=== PATIENT | male | born 1960 | race Caucasian/White ===

== ENCOUNTER 2017-01-31 21:29 | Inpatient (IN) | payer MEDICARE, OTHER ==
[2017-01-31] VITALS (8 sets, daily range): BP systolic 47–74; BP diastolic 25–38; TEMP 101.9; O2SAT 0–98
[~2017-01-31 21:29] MED LIST: ACET325T11 PO; ATOR20TA PO; BENZ1TAB PO; CIME200 PO; D-10TAB3 PO; DEPA500T3 PO; FURO1TAB93 PO; LORA-392 PO; POTASSIUM PO; RISP1TAB54 PO; SERO200T PO
[2017-01-31] MEDS ORDERED: PHENYLEPHRINE HCL 10 MG/ML VIAL ONE ×2 (21:58→21:59)
[2017-01-31] MEDS ORDERED: SODIUM CHLOR 0.9% 1000 ML INJ 1,000 ML IV ONE ×2 (22:12)
[2017-01-31] MEDS ORDERED: SODIUM CHLOR 0.9% 1000 ML INJ 700 ML IV ONE (22:12)
[2017-01-31] MEDS ORDERED: VASOPRESSIN INJ 40 UNITS in DEXTROSE 5% IN WATER 100ML INJ 98 ML IV SCH ×2 (22:12)
[2017-01-31] MEDS ORDERED: VANCOMYCIN INJ 2,000 MG in SODIUM CHLORID 0.9% 500 ML INJ 500 ML IV STA (22:12)
[2017-01-31] MEDS ORDERED: CEFEPIME INJ 2,000 MG in SODIUM CHLORIDE 0.9% INJ 100 ML IV STA (22:12)
[2017-01-31] MEDS ORDERED: VASOPRESSIN 40 U/100 ML D5W Titrate, Post Cardiac Surgery IV SCH ×2 (22:15)
--- NOTE | 2017-01-31 22:24 | PD ---
HPI Chief Complaint: Code Blue Time Seen by Provider: 22:12 Travel History International Travel<30 days: No (unable to determine) Contact w/Intl Traveler<30days: No History of Present Illness HPI Patient's 56 years old. He arrives from [place] where he was found unresponsive and asystolic. Duration of asystole unknown to the nursing staff. EMS initiated a sales protocol upon arrival and administered several rounds of epinephrine 2 rounds of bicarbonate and 2 mg of Narcan. The patient remained asystolic or in PEA throughout the course except for one episode of ventricular fibrillation. EMS reports performing approximately 30 minutes of chest compressions with no pulse. Endotracheal tube 8-0 placed successfully with breath sounds present bilaterally and a PCO2 of approximately 38. Upon arrival to the ER endotracheal tube placement was confirmed an ACLS protocol was continued. Within about 5 minutes or so palpable pulses were obtained. A right femoral vein central venous access was placed. The patient received 2 rounds of epi here as well as an additional round of bicarbonate and 2 rounds of calcium chloride. A Levophed drip was initiated as well as a Juan Diego-Synephrine drip. In the interim the charge nurse contacted the patient's brother who is the legal surrogate who confirmed that the patient is to be a DO NOT RESUSCITATE. The verbal DNR status was witnessed by DELFINO Beard. As such vasopressors will be maintained. In the event that pulses are loss the patient will not undergo chest compressions. His pupils were fixed and dilated upon ER arrival and remained so. PFSH Past Medical History Anemia: Yes Anxiety: Yes Depression: Yes Cancer: No Cardiovascular Problems: Yes High Cholesterol: Yes COPD: Yes Diabetes: No Diminished Hearing: No Endocrine: No Gastrointestinal Disorders: Yes GERD: Yes Genitourinary: Yes (KIDNEY DISEASE, CHRONIC UTIS) Hypertension: Yes Immune Disorder: No Musculoskeletal: No Neurologic: No Psychiatric: Yes Reproductive: Yes (BPH) Respiratory: Yes Schizophrenia: Yes Triglycerides - High: Yes Social History Alcohol Use: No Tobacco Use: Yes (1/2 PPD) Allergies-Medications (Allergen,Severity, Reaction): Coded Allergies: No Known Allergies (Unverified , 02/01/17) Reported Meds & Prescriptions Reported Meds & Active Scripts Active Reported C-500 (Ascorbic Acid) 500 Mg Tab 500 Mg PO BID Mapap (Acetaminophen) 325 Mg Tab 650 Mg PO Q6HR PRN Tagamet Hb (Cimetidine) 200 Mg Tab 200 Mg PO BID Seroquel (Quetiapine Fumarate) 200 Mg Tab 200 Mg PO HS Seroquel (Quetiapine Fumarate) 100 Mg Tab 100 Mg PO DAILY Risperidone 0.5 Mg Tab 0.5 Mg PO HS Risperdal (Risperidone) 0.25 Mg Tab 0.25 Mg PO DAILY K-Tab (Potassium Chloride) 10 Meq Tab 10 Meq PO BID Thera-M (Multiple Vitamins W/ Minerals) 1 Tab 1 Tab PO DAILY Levaquin (Levofloxacin) 500 Mg Tab 500 Mg PO DAILY Lasix (Furosemide) 40 Mg Tab 40 Mg PO BID Depakote Sprinkles (Divalproex Sodium) 125 mg Cap 250 Mg PO BID Vitamin D3 (Cholecalciferol) 2,000 Unit Tab 2,000 Units PO DAILY Baclofen 10 Mg Tab 10 Mg PO BID Atorvastatin (Atorvastatin Calcium) 20 Mg Tab 20 Mg PO HS Ativan (Lorazepam) 0.5 Mg Tab 0.5 Mg PO Q6H PRN Trihexyphenidyl (Trihexyphenidyl HCl) 5 Mg Tab 5 Mg PO TID Review of Systems ROS Limitations: Intubated Physical Exam Narrative GENERAL: 56-year-old male unresponsive GCS 3T SKIN: Warm. Delayed capillary refill in the periphery. HEAD: Atraumatic. Normocephalic. EYES: Teeple sticks and dilated. ENT: No nasal bleeding or discharge. Mucous membranes pink and moist. Patient intubated. NECK: Trachea midline. No JVD. Patient intubated. CARDIOVASCULAR: Initially pulseless. Return spontaneous circulation occurred after bicarbonate epinephrine and calcium. RESPIRATORY: Intubated. Breath sounds present bilaterally. GASTROINTESTINAL: Abdomen soft, non-tender, nondistended. Hepatic and splenic margins not palpable. MUSCULOSKELETAL: Deformity at the left ankle and foot appears chronic in nature. Bilateral edema present in the knees distally. NEUROLOGICAL: GCS3T. Pupils fixed dilated. PSYCHIATRIC: Unable to assess. Data Data Last Documented VS Vital Signs Date Time Temp Pulse Resp B/P Pulse Ox O2 Delivery O2 Flow Rate FiO2 02/01/17 01:08 108 16 66/45 94 Ventilator 100 01/31/17 21:48 101.9 01/31/17 21:29 15.00 Orders Phenylephrine Inj (Neosynephrine Inj) (01/31/17 21:58) Phenylephrine Inj (Neosynephrine Inj) (01/31/17 21:59) Vasopressin Inj (Pitressin Inj) (01/31/17 22:15) Electrocardiogram (01/31/17 22:12) Complete Blood Count With Diff (01/31/17 22:12) Comprehensive Metabolic Panel (01/31/17 22:12) Prothrombin Time / Inr (Pt) (01/31/17 22:12) Act Partial Throm Time (Ptt) (01/31/17 22:12) Lactic Acid Sepsis Protocol (01/31/17 22:12) Magnesium (Mg) (01/31/17 22:12) Phosphorus (Po4) (01/31/17 22:12) Lipase (01/31/17 22:12) Ckmb (Isoenzyme) Profile (01/31/17 22:12) Troponin I (01/31/17 22:12) Urinalysis - C+S If Indicated (01/31/17 22:12) Blood Culture (01/31/17 22:12) Chest, Single Ap (01/31/17 22:12) Blood Glucose (01/31/17 22:12) Ecg Monitoring (01/31/17 22:12) Iv Access Insert/Monitor (01/31/17 22:12) Oximetry (01/31/17 22:12) Oxygen Administration (01/31/17 22:12) Urinary Catheter Insert/Apply (01/31/17 22:12) Vancomycin Inj (Vancomycin Inj) (01/31/17 22:12) Cefepime Inj (Maxipime Inj) (01/31/17 22:12) Sodium Chlor 0.9% 1000 Ml Inj (Ns 1000 M (01/31/17 22:12) Sodium Chlor 0.9% 1000 Ml Inj (Ns 1000 M (01/31/17 22:12) Sodium Chlor 0.9% 1000 Ml Inj (Ns 1000 M (01/31/17 22:12) Norepinephrine-Dextrose Drip (Levophed-D (01/31/17 22:15) Dextrose 5% In [place]... W/Vasopressin Inj (01/31/17 22:12) Equip, Iv Pump Triple Use Of (01/31/17 22:24) Acetaminophen (Tylenol) (01/31/17 22:45) Blood Product Administration .UPON TRANSFUSION (01/31/17 22:42) Dextrose 5% In [place]... W/Sodium Bicarbon (01/31/17 22:45) Urine Culture (01/31/17 22:30) Hospice Consult (01/31/17 23:28) CKMB (01/31/17 21:30) CKMB% (01/31/17 21:30) Norepinephrine Inj (Levophed Inj) (02/01/17 00:21) Admit Order (Ed Use Only) (02/01/17 01:18) Phenylephrine Inj (Neosynephrine Inj) (02/01/17 02:30) Terbutaline Inj (Brethine Inj) (02/01/17 01:30) Labs Laboratory Tests Test 01/31/17 01/31/17 01/31/17 21:30 22:25 22:30 White Blood Count 20.3 TH/MM3 Red Blood Count 4.48 MIL/MM3 Hemoglobin 13.9 GM/DL Hematocrit 43.3 % Mean Corpuscular Volume 96.8 FL Mean Corpuscular Hemoglobin 31.1 PG Mean Corpuscular Hemoglobin 32.2 % Concent Red Cell Distribution Width 14.5 % Platelet Count 252 TH/MM3 Mean Platelet Volume 9.2 FL Neutrophils (%) (Auto) 71.6 % Lymphocytes (%) (Auto) 21.7 % Monocytes (%) (Auto) 4.9 % Eosinophils (%) (Auto) 1.1 % Basophils (%) (Auto) 0.7 % Neutrophils # (Auto) 14.5 TH/MM3 Lymphocytes # (Auto) 4.4 TH/MM3 Monocytes # (Auto) 1.0 TH/MM3 Eosinophils # (Auto) 0.2 TH/MM3 Basophils # (Auto) 0.1 TH/MM3 CBC Comment AUTO DIFF Differential Total Cells 100 Counted Neutrophils % (Manual) 60 % Band Neutrophils % 8 % Lymphocytes % 24 % Monocytes % 1 % Eosinophils % 1 % Neutrophils # (Manual) 15.0 TH/MM3 Metamyelocytes 6 % Nucleated Red Blood Cells 8 /100 WBC Differential Comment FINAL DIFF MANUAL Platelet Estimate NORMAL Platelet Morphology Comment NORMAL Red Cell Morphology Comment NORMAL Prothrombin Time 13.9 SEC Prothromb Time International 1.2 RATIO Ratio Activated Partial 25.4 SEC Thromboplast Time Sodium Level 143 MEQ/L Potassium Level 4.1 MEQ/L Chloride Level 97 MEQ/L Carbon Dioxide Level 18.0 MEQ/L Anion Gap 28 MEQ/L Blood Urea Nitrogen 31 MG/DL Creatinine 3.90 MG/DL Estimat Glomerular Filtration 16 ML/MIN Rate Random Glucose 183 MG/DL Calcium Level 9.2 MG/DL Phosphorus Level 9.8 MG/DL Magnesium Level 3.1 MG/DL Total Bilirubin 0.7 MG/DL Aspartate Amino Transf 1876 U/L (AST/SGOT) Alanine Aminotransferase 1758 U/L (ALT/SGPT) Alkaline Phosphatase 139 U/L Total Creatine Kinase 1442 U/L Creatine Kinase MB 15.4 NG/ML Creatine Kinase MB % 1.1 % Troponin I 1.12 NG/ML Total Protein 6.6 GM/DL Albumin 3.0 GM/DL Lipase 309 U/L Lactic Acid Level 13.6 mmol/L Urine Color YELLOW Urine Turbidity HAZY Urine pH 6.0 Urine Specific [place] 1.013 Urine Protein 30 mg/dL Urine Glucose (UA) NEG mg/dL Urine Ketones NEG mg/dL Urine Occult Blood SMALL Urine Nitrite NEG Urine Bilirubin NEG Urine Urobilinogen 2.0 MG/DL Urine Leukocyte Esterase NEG Urine RBC 31 /hpf Urine WBC 6 /hpf Urine Squamous Epithelial 1 /hpf Cells Urine Renal Epithelial Cells 3 /hpf Urine Calcium Oxalate Crystals RARE /hpf Urine Bacteria RARE /hpf Urine Hyaline Casts 5 /lpf Urine Mucus FEW /lpf Urine Yeast (Budding) RARE Microscopic Urinalysis Comment CATH-CULTURE IND MDM Medical Decision Making Medical Screen Exam Complete: Yes Emergency Medical Condition: Yes Medical Record Reviewed: Yes Differential Diagnosis Cardiopulmonary arrest, sepsis,anoxic brain injury, hemorrhagic shock Narrative Course Please refer to the history of present illness. At 10:25 PM the patient's blood pressure still 62/33. The pulse is 122. He is on Levophed and Juan Diego-Synephrine. The vasopressin drip just arrived. Continue to optimize blood pressure for now. Antibiotics have been ordered as have IV fluids. The prognosis is extremely grave. At 10:30 PM HR 120, BP 69/40. PRBCs ordered at 1040pm. BICARB gtt ordered at 1045pm. Case d/w Dr Morton for Unit Nurse Service who will admit the patient. Brother at bedside in ER and are comfortable with plan; brother supports efforts for organ donation. Critical Care Narrative Aggregate critical care time was 40 minutes. Time to perform other separately billable procedures was not included in the critical care time. My time did not include minutes spent treating any other patients simultaneously or on activities that did not directly contribute to the patient's treatment. The services I provided to this patient were to treat and/or prevent clinically significant deterioration that could result in: Expiration/mortality I provided critical care services requiring my management, as noted below: Chart data review, documentation time, medication orders and management, vital sign assessments/reviewing monitor data, ordering and reviewing lab tests, ordering and interpreting/reviewing x-rays and diagnostic studies, care of the patient and discussion of the patient with the admitting physicians. Procedures Procedure Narrative CENTRAL VENOUS LINE: The site was prepped with Betadine and sterilely draped. It was infiltrated with 1% lidocaine plain. The deep vein was cannulated using normal Seldinger technique. A 3 lumen central line was placed in the R femoral vein site and secured with simple interrupted suture. The site was sterilely dressed. The patient tolerated the procedure well. Sepsis Criteria SIRS Criteria (2 or more): Temp > 100.9 or < 96.8, Heart rate over 90 Sepsis Criteria (SIRS+source): Infect source susp/known Severe Sepsis (+one): Lactate >2 Septic Shock Criteria: Lactic acid >=4 Multiple Organ Dysfunction Syn: Evidence -2 organs failing Criteria Outcome: Meets multiple organ dys. criteria Diagnosis Primary Impression: Cardiopulmonary arrest Additional Impressions: Acute respiratory failure Qualified Code: J96.00 - Acute respiratory failure, unspecified whether with hypoxia or hypercapnia Ischemic hepatitis Multi-organ failure with heart failure Schizophrenia Qualified Code: F20.89 - Other schizophrenia Fever Qualified Code: R50.9 - Fever, unspecified fever cause Admitting Information Admitting Physician Requests: Tye Reid MD Jan 31, 2017 22:24
--- NOTE | 2017-01-31 22:35 | RADRPT ---
EXAM DATE/TIME: 01/31/2017 22:26 [facility] COMPARISON: CHEST SINGLE AP, December 02, 2014, 1:22. INDICATIONS : Post intubation. MEDICAL HISTORY : Hypertension. Hypercholesterolemia. Chronic obstructive pulmonary disease. GERD. SURGICAL HISTORY : None. ENCOUNTER: Initial ACUITY: 1 day PAIN SCORE: Non-responsive. LOCATION: Bilateral chest FINDINGS: The endotracheal tube and NG tube appear in good position. Is no pneumothorax. There is some scattere d infiltrates bilaterally, right greater than left. No definite pleural effusions. No evidence of pne umothorax. The bony structures are grossly intact. CONCLUSION: 1. Endotracheal tube and NG tube appear to be in good position. 2. No pneumothorax. 3. Scattered bilateral infiltrates. Alfie Mclaughlin MD on January 31, 2017 at 22:33 Board Certified Radiologist. This report was verified electronically.
[2017-01-31 22:39] LABS: AUTOMATED NEUTROPHIL # 14.5 TH/MM3 (1.8-7.7); BASOPHIL # 0.1 TH/MM3 (0-0.2); BASOPHIL % 0.7 % (0.0-2.0); EOSINOPHIL # 0.2 TH/MM3 (0-0.4); EOSINOPHIL % 1.1 % (0.0-4.0); HEMATOCRIT 43.3 % (39.0-51.0); LYMPH % 21.7 % (9.0-44.0); LYMPHOCYTE # 4.4 TH/MM3 (1.0-4.8); MEAN CELL VOLUME 96.8 FL (80.0-100.0); MEAN CORPUSCULAR HEMOGLOBIN 31.1 PG (27.0-34.0); MEAN CORPUSCULAR HGB CONC 32.2 % (32.0-36.0); MONO % 4.9 % (0.0-8.0); NEUT % 71.6 % (16.0-70.0); PLATELET COUNT 252 TH/MM3 (150-450); RED BLOOD COUNT 4.48 MIL/MM3 (4.50-5.90); RED CELL DISTRIBUTION WIDTH 14.5 % (11.6-17.2); WHITE BLOOD COUNT 20.3 TH/MM3 (4.0-11.0)
[2017-01-31] MEDS ORDERED: SODIUM BICARBONATE 8.4% INJ 100 MEQ in DEXTROSE 5% IN WATE 1000ML INJ 1,000 ML IV SCH ×2 (22:45)
[2017-01-31] MEDS ORDERED: ACETAMINOPHEN 325 MG TAB PO ONE (22:45)
[2017-01-31 22:46] LABS: HEMO FLAGS AUTO DIFF
[2017-01-31 23:05] LABS: BACTERIA, URINE RARE /hpf; BLOOD, URINE SMALL (NEG); CALCIUM OXALATE CRYSTALS,URINE RARE /hpf; GLUCOSE,URINE NEG (NEG); HYALINE CAST, URINE 5 /lpf (RARE); KETONE, URINE NEG (NEG); MUCUS URINE FEW /lpf (OCC); NITRITE,URINE NEG (NEG); RENAL EPITHELIAL CELLS 3 /hpf; SQUAMOUS EPITHELIAL CELL URINE 1 /hpf (0-5); URINE COLOR YELLOW (YELLW/STRAW)
[2017-01-31 23:08] LABS: COMMENT (UR) CATH-CULTURE IND; CULTURE IF INDICATED CATH CULTURE IND
[2017-01-31 23:14] LABS: APTT (PATIENT) 25.4 SEC (24.3-30.1); INTERNATIONAL NORMALIZED RATIO 1.2 RATIO; PROTHROMBIN TIME - PATIENT 13.9 SEC (9.8-11.6)
[2017-01-31 23:16] LABS: BANDS 8 % (0-6); CORRECTED NUCLEATED RBC 8 /100 WBC (0-0); EOSINOPHILS 1 % (0-4); METAMYELOCYTES 6 % (0-1); POLYS (SEG NEUTROPHILS) 60 % (16-70); WBC DIFF SAMPLE 100
[2017-01-31 23:18] LABS: PLATELET ESTIMATE SMEAR NORMAL (NORMAL); PLATELET MORPHOLOGY NORMAL (NORMAL); SCAN/DIFF FINAL DIFF MANUAL
[2017-01-31 23:20] LABS: BLOOD UREA NITROGEN 31 MG/DL (7-18); GLOMERULAR FILTRATION RATE 16 ML/MIN (>89); MAGNESIUM 3.1 MG/DL (1.5-2.5)
[2017-01-31 23:21] LABS: ALKALINE PHOSPHATASE 139 U/L (45-117); ALT (GPT) 1758 U/L (12-78); ANION GAP 28 MEQ/L (5-15); AST (GOT) 1876 U/L (15-37); CHLORIDE 97 MEQ/L (98-107); POTASSIUM 4.1 MEQ/L (3.5-5.1); SODIUM (NA) 143 MEQ/L (136-145); TOTAL BILIRUBIN ADULT 0.7 MG/DL (0.2-1.0)
[2017-01-31 23:32] LABS: CREATINE KINASE 1442 U/L (39-308)
[2017-01-31 23:45] LABS: CKMB 15.4 NG/ML (0.5-3.6)
[2017-02-01] VITALS (17 sets, daily range): BP systolic 58–69; BP diastolic 35–46; PULSE 0–111; RESP 16; TEMP 98–98.4; O2SAT 0–100
[2017-02-01] MEDS ORDERED: LORA-392 PO (00:03)
[2017-02-01] MEDS ORDERED: ATOR20TA15 PO (00:03)
[2017-02-01] MEDS ORDERED: TRIH5TAB2 PO (00:03)
[2017-02-01] MEDS ORDERED: VITA200012 PO (00:03)
[2017-02-01] MEDS ORDERED: BACL10TA PO (00:03)
[2017-02-01] MEDS ORDERED: LEVA500T PO (00:03)
[2017-02-01] MEDS ORDERED: RISP0.5T2 PO (00:03)
[2017-02-01] MEDS ORDERED: CIME200T23 PO (00:03)
[2017-02-01] MEDS ORDERED: C-50TAB2 PO (00:03)
[2017-02-01] MEDS ORDERED: DIVA125C PO (00:03)
[2017-02-01] MEDS ORDERED: SERO200T PO (00:03)
[2017-02-01] MEDS ORDERED: SERO100T PO (00:03)
[2017-02-01] MEDS ORDERED: FURO1TAB60 PO (00:03)
[2017-02-01] MEDS ORDERED: K-TA10TA PO (00:03)
[2017-02-01] MEDS ORDERED: THERTAB17 PO (00:03)
[2017-02-01] MEDS ORDERED: MAPA325T PO (00:03)
[2017-02-01] MEDS ORDERED: RISP.25 PO (00:03)
[2017-02-01] MEDS ORDERED: NOREPINEPHRINE 4 MG/4 ML AMP ONE (00:21)
[2017-02-01 00:40] LABS: LACTIC ACID GHOST NOT REPORTABLE
[2017-02-01] MEDS ORDERED: HYDROCORTISONE SOD SUCCINATE 100 MG VIAL IV PUSH SCH (01:30)
[2017-02-01] MEDS ORDERED: TERBUTALINE INJ 1 MG/ML AMP SQ PRN (01:30)
[2017-02-01] MEDS ORDERED: PHENYLEPHRINE INJ 40 MG in DEXTROSE 5% IN WATE 500 ML INJ 496 ML IV SCH ×2 (02:30)
[2017-02-01] MEDS: NOREPINEPHRINE-DEXTROSE DRIP 250 ML IV SCH ×2 (03:29→04:32)
[2017-02-01] MEDS ORDERED: EPINEPHrine (1:1000) INJ 2 MG in DEXTROSE 5% IN WATER INJ 248 ML IV SCH ×2 (03:30)
[2017-02-01] MEDS ORDERED: SODIUM BICARBONATE 8.4% INJ 150 MEQ in DEXTROSE 5% IN WATE 1000ML INJ 1,000 ML IV SCH ×2 (05:00)
--- NOTE | 2017-02-01 05:14 | HHI.HP ---
[facility] Service Critical Care Medicine Primary Care Physician Zurdo Hurt MD Admission Diagnosis MODS, Cardiopulmonary Arrest Diagnosis: (1) Schizophrenia Diagnosis: Secondary (2) Cardiopulmonary arrest Diagnosis: Principal Travel History International Travel<30 Days: No Contact w/Intl Traveler <30 Da: No Traveled to Known Affected Are: No History of Present Illness 56-year-old male with past medical history of schizophrenia who is a resident of [facility]. He was found unresponsive and in asystole. CPR was initiated. [facility] arrived and patient was administered epinephrine 7, 2 amps of bicarbonate, Narcan 2 mg IV. At one point he did have a shockable rhythm and was defibrillated x1. The remainder of the time he was in asystole or PEA. ACLS was performed for total of 35 minutes, with ROSC achieved about 5 minutes after arrival to ED. Intubated per [facility]. He received additional 2 mg of Epi and 2 amps of calcium chloride in the ED. He was started on levophed at 40 mcg/min, phenylephrine 360 mcg/m, vasopressin 0.03 units per minute, and bicarbonate drip. He remains hypotensive in 60s /40s. Two ED nurses called and discussed with patient's brother who indicated he is DNR. Per ED charge nurse, brother was hopeful for possibility of organ donation and [facility] indicated he would be followed for liver. Past Family Social History Allergies: Coded Allergies: No Known Allergies (Unverified , 02/01/17) Past Medical History Anxiety Hyperlipidemia/hypertriglyceridemia COPD GERD Recurrent UTI Schizophrenia Past Surgical History Unable to obtain secondary to patient's clinical condition. Reported Medications Per med rec Active Ordered Medications Family History Unable to obtain secondary to patient's clinical condition. Social History Has lived in a facility since age 18 Smokes half a pack of cigarettes per day. No alcohol or illicit drug use. Physical Exam Vital Signs Vital Signs Date Time Temp Pulse Resp B/P Pulse Ox O2 Delivery O2 Flow Rate FiO2 02/01/17 03:20 100 100 02/01/17 03:19 96 100 02/01/17 02:03 94 100 02/01/17 00:44 110 16 59/43 94 100 02/01/17 00:36 111 16 58/35 95 100 01/31/17 22:17 63/31 01/31/17 22:10 55/34 01/31/17 22:04 52/33 01/31/17 21:58 50/34 01/31/17 21:51 47/25 01/31/17 21:48 101.9 74/38 98 Ventilator 01/31/17 21:45 0 100 01/31/17 21:40 100 01/31/17 21:29 93 15.00 100 Physical Exam Pulse 80s and systolic on the monitor. Blood pressure 60/30 sats 100% on FiO2 100% GENERAL: Overweight male who is orotracheally intubated. SKIN: Warm and dry. HEAD: Atraumatic. Normocephalic. EYES: Pupils fixed and dilated, no corneal reflex. ENT: Coffee ground material in mouth NECK: Trachea midline. +JVD CARDIOVASCULAR: Regular rate and rhythm, sinus rhythm on monitor with rate in 80. No murmurs rubs or gallops. RESPIRATORY: Coarse bilateral breath sounds. No wheeze. GASTROINTESTINAL: Abdomen soft, non-tender, nondistended. OG tube in place to suction with black output : Jama in place with minimal shari urine in bag MUSCULOSKELETAL: Extremities peripherally cool and poorly perfused. NEUROLOGICAL: Pupils fixed and dilated, no corneal reflex, no cough, no gag, no breathing over the vent, no response to deep noxious stimuli. Laboratory Laboratory Tests Test 01/31/17 01/31/17 01/31/17 21:30 22:25 22:30 White Blood Count 20.3 Red Blood Count 4.48 Hemoglobin 13.9 Hematocrit 43.3 Mean Corpuscular Volume 96.8 Mean Corpuscular Hemoglobin 31.1 Mean Corpuscular Hemoglobin 32.2 Concent Red Cell Distribution Width 14.5 Platelet Count 252 Mean Platelet Volume 9.2 Neutrophils (%) (Auto) 71.6 Lymphocytes (%) (Auto) 21.7 Monocytes (%) (Auto) 4.9 Eosinophils (%) (Auto) 1.1 Basophils (%) (Auto) 0.7 Neutrophils # (Auto) 14.5 Lymphocytes # (Auto) 4.4 Monocytes # (Auto) 1.0 Eosinophils # (Auto) 0.2 Basophils # (Auto) 0.1 CBC Comment AUTO DIFF Differential Total Cells 100 Counted Neutrophils % (Manual) 60 Band Neutrophils % 8 Lymphocytes % 24 Monocytes % 1 Eosinophils % 1 Neutrophils # (Manual) 15.0 Metamyelocytes 6 Nucleated Red Blood Cells 8 Differential Comment FINAL DIFF MANUAL Platelet Estimate NORMAL Platelet Morphology Comment NORMAL Red Cell Morphology Comment NORMAL Prothrombin Time 13.9 Prothromb Time International 1.2 Ratio Activated Partial 25.4 Thromboplast Time Sodium Level 143 Potassium Level 4.1 Chloride Level 97 Carbon Dioxide Level 18.0 Anion Gap 28 Blood Urea Nitrogen 31 Creatinine 3.90 Estimat Glomerular Filtration 16 Rate Random Glucose 183 Calcium Level 9.2 Phosphorus Level 9.8 Magnesium Level 3.1 Total Bilirubin 0.7 Aspartate Amino Transf 1876 (AST/SGOT) Alanine Aminotransferase 1758 (ALT/SGPT) Alkaline Phosphatase 139 Total Creatine Kinase 1442 Creatine Kinase MB 15.4 Creatine Kinase MB % 1.1 Troponin I 1.12 Total Protein 6.6 Albumin 3.0 Lipase 309 Lactic Acid Level 13.6 Urine Color YELLOW Urine Turbidity HAZY Urine pH 6.0 Urine Specific [place] 1.013 Urine Protein 30 Urine Glucose (UA) NEG Urine Ketones NEG Urine Occult Blood SMALL Urine Nitrite NEG Urine Bilirubin NEG Urine Urobilinogen 2.0 Urine Leukocyte Esterase NEG Urine RBC 31 Urine WBC 6 Urine Squamous Epithelial 1 Cells Urine Renal Epithelial Cells 3 Urine Calcium Oxalate Crystals RARE Urine Bacteria RARE Urine Hyaline Casts 5 Urine Mucus FEW Urine Yeast (Budding) RARE Microscopic Urinalysis Comment CATH-CULTURE IND Date/Time Procedure Status Source Growth 01/31/17 22:30 Urine Culture Received Urine Catheterized Urine Pending 01/31/17 22:25 Aerobic Blood Culture Received Blood Peripheral Pending 01/31/17 22:25 Anaerobic Blood Culture Received Blood Peripheral Pending Result Diagram: 01/31/17212901/31/172129 Assessment and Plan Assessment and Plan NEURO: Acute encephalopathy w/ evidence of anoxia On no continuous sedation RESP: Acute respiratory failure Severe acute respiratory and metabolic acidemia Intubated on mechanical ventilation. Ventilator bundle. CV: Asystolic cardiac arrest Acute cardiogenic shock with multiorgan dysfunction NSTEMI He is in refractory shock on high-dose levo fed, phenylephrine, vasopressin. Epinephrine and hydro-cortisone 100 mg IV every 8 hours were added GI: Ischemic Hepatitis History of GERD Nothing by mouth. OGT to LIWS Protonix 40 mg IV daily FEN/RENAL: Acute kidney injury Severe acute metabolic acidemia, lactic acidemia Jama in place. He is anuric. Monitor intake and output. Monitor I's and replace as indicated. D5W with 150 mEq of bicarbonate per liter at 100 mL per hour ID: UTI Aspiration pneumonia Leukocytosis Has received vancomycin and cefepime. Follow-up urine culture, blood culture, sputum culture. HEME: Chronic anemia ENDO: Acute hyperglycemia Check bedside glucose every 6 hours and initiate low-dose insulin sliding scale PROPH: Protonix 40 mg IV daily for stress ulcer prophylaxis. Heparin subcutaneous for DVT prophylaxis. ACCESS: Right femoral central venous line placed in ED 02/01/17. Multiple attempts at radial art line and left femoral Art line were unsuccessful. Patient was in refractory shock upon consultation for admission to ICU. Patient 's brother had indicated that patient was DNR. There was some consideration of comfort measures by brother, however resuscitation was continued in hopes for organ donation if possible. However, patient remained in refractory shock 60/40 despite extremely high doses of 4 vasopressors. He ultimately had no Bp per cuff. Unable to place art line. Carotid pulse by doppler only, not palpable. Ultimately he lost dopplerable carotid pulse and went into asystole. He at 05:42. Critical care time 60 minutes exclusive of separately billable procedures. Hollie Morton MD Feb 01, 2017 05:14
[2017-02-01] MEDS ORDERED: INSULIN ASPART SUPPLEMENTAL SCALE SQ SCH (05:15)
[2017-02-01] MEDS ORDERED: DEXTROSE 50% IN WATER 50 ML VIAL(D50) IV PUSH PRN (05:15)
[2017-02-01] MEDS ORDERED: GLUCAGON 1 MG/ML VIAL OTHER PRN (05:15)
[2017-02-01] MEDS ORDERED: MORPHINE SULFATE 8 MG/ML INJ IV PUSH ONE (05:30)
[2017-02-01 05:37] LABS: BLOOD GAS BASE EXCESS -16.9 mmol/L (-2-2); BLOOD GAS CARBOXYHEMOGLOBIN 0.1 % (0-4); BLOOD GAS HCO3 13 mmol/L (22-26); BLOOD GAS METHEMOGLOBIN 1.1 % (0-2); BLOOD GAS O2 HGB SATURATION 56 % (90-100); BLOOD GAS OXYGEN CONTENT 7.9 Vol % (12.0-20.0); BLOOD GAS PCO2 60 mmHg (38-42); BLOOD GAS PO2 46 mmHg (61-120); TEMP CORR TO 98.6
[2017-02-01 05:38] LABS: CRITICAL VALUE YES; OXYGEN DEVICE VENTILATOR
[2017-02-01 05:39] LABS: DRAW SITE ART LINE; FIO2 100 %; STAT NO; VENT SETTINGS SEE COMMENTS
[2017-02-01] MEDS ORDERED: AMIODARONE HCL 150 MG/3 ML VIAL IV ONE (07:51)
[2017-02-01] MEDS ORDERED: CALCIUM CHLORIDE 10% SOLN 1 GRAM/10 ML SYR IV ONE (07:51)
[2017-02-01] MEDS ORDERED: SODIUM BICARBONATE 8.4% INJ 50 MEQ/50 ML SYR IV ONE (07:51)
[2017-02-01] MEDS ORDERED: NOREPINEPHRINE 4 MG/4 ML AMP IV ONE (07:51)
[2017-02-01] MEDS ORDERED: EPINEPHrine HCL (1:10,000) 1 MG/10 ML SYRINGE IV ONE (07:51)
--- NOTE | 2017-02-01 08:04 | DEATH SUM ---
Summary Demographics Date Pronounced : Feb 01, 2017 Time Of : 0542 Pronounced By: DELFINO Guajardo Dr. Preliminary Cause of : Cardiac arrest Hollie Morton MD Feb 01, 2017 08:04
--- NOTE | 2017-02-01 08:06 | HHI.DS ---
Summary Note Date of : Feb 01, 2017 Time Of : 0542 Admission Date Feb 01, 2017 at 01:19 Admitting Diagnosis MODS, Cardiopulmonary Arrest Diagnosis at Time of : (1) Schizophrenia ICD Code: F20.9 Diagnosis: Secondary (2) Cardiopulmonary arrest ICD Code: I46.9 Diagnosis: Principal (3) Ischemic hepatitis ICD Code: K75.9 Diagnosis: Secondary (4) DUSTIN (acute kidney injury) ICD Code: N17.9 (5) Multi-organ failure with heart failure ICD Code: I50.9 (6) Fever ICD Code: R50.9 Diagnosis: Secondary (7) Aspiration pneumonia ICD Code: J69.0 Diagnosis: Secondary (8) UTI (urinary tract infection) ICD Code: N39.0 Diagnosis: Secondary (9) Leukocytosis ICD Code: D72.829 Diagnosis: Secondary (10) Cardiogenic shock ICD Code: R57.0 Diagnosis: Principal (11) Acute respiratory failure ICD Code: J96.00 Diagnosis: Principal Brief History 56-year-old male with past medical history of schizophrenia who is a resident of [facility]. He was found unresponsive and in asystole. CPR was initiated. [facility] arrived and patient was administered epinephrine 7, 2 amps of bicarbonate, Narcan 2 mg IV. At one point he did have a shockable rhythm and was defibrillated x1. The remainder of the time he was in asystole or PEA. ACLS was performed for total of 35 minutes, with ROSC achieved about 5 minutes after arrival to ED. Intubated per [facility]. He received additional 2 mg of Epi and 2 amps of calcium chloride in the ED. He was started on levophed at 40 mcg/min, phenylephrine 360 mcg/m, vasopressin 0.03 units per minute, and bicarbonate drip. He remains hypotensive in 60s /40s. Two ED nurses called and discussed with patient's brother who indicated he is DNR. Per ED charge nurse, brother was hopeful for possibility of organ donation and [facility] indicated he would be followed for liver. CBC/BMP: 01/31/17212901/31/172129 Significant Findings Laboratory Tests Test 01/31/17 01/31/17 01/31/17 02/01/17 21:30 22:25 22:30 04:45 White Blood Count 20.3 TH/MM3 (4.0-11.0) Red Blood Count 4.48 MIL/MM3 (4.50-5.90) Neutrophils (%) (Auto) 71.6 % (16.0-70.0) Neutrophils # (Auto) 14.5 TH/MM3 (1.8-7.7) Monocytes # (Auto) 1.0 TH/MM3 (0-0.9) Band Neutrophils % 8 % (0-6) Neutrophils # (Manual) 15.0 TH/MM3 (1.8-7.7) Metamyelocytes 6 % (0-1) Nucleated Red Blood Cells 8 /100 WBC (0-0) Prothrombin Time 13.9 SEC (9.8-11.6) Chloride Level 97 MEQ/L (98-107) Carbon Dioxide Level 18.0 MEQ/L (21.0-32.0) Anion Gap 28 MEQ/L (5-15) Blood Urea Nitrogen 31 MG/DL (7-18) Creatinine 3.90 MG/DL (0.60-1.30) Estimat Glomerular Filtration 16 ML/MIN (>89) Rate Random Glucose 183 MG/DL (74-106) Phosphorus Level 9.8 MG/DL (2.5-4.9) Magnesium Level 3.1 MG/DL (1.5-2.5) Aspartate Amino Transf 1876 U/L (AST/SGOT) (15-37) Alanine Aminotransferase 1758 U/L (ALT/SGPT) (12-78) Alkaline Phosphatase 139 U/L (45-117) Total Creatine Kinase 1442 U/L (39-308) Creatine Kinase MB 15.4 NG/ML (0.5-3.6) Troponin I 1.12 NG/ML (0.02-0.05) Albumin 3.0 GM/DL (3.4-5.0) Lactic Acid Level 13.6 mmol/L 13.3 mmol/L (0.4-2.0) (0.4-2.0) Urine Turbidity HAZY (CLEAR) Urine Protein 30 mg/dL (NEG-TRACE) Urine Occult Blood SMALL (NEG) Urine RBC 31 /hpf (0-3) Urine WBC 6 /hpf (0-5) Urine Calcium Oxalate Crystals RARE /hpf (NONE) Urine Bacteria RARE /hpf (NONE) Urine Mucus FEW /lpf (OCC) Urine Yeast (Budding) RARE (NONE) Test 02/01/17 05:13 Blood Gas HCO3 13 mmol/L (22-26) Blood Gas Base Excess -16.9 mmol/L (-2-2) Blood Gas Oxygen Saturation 56 % (90-100) Arterial Blood pH 6.96 (7.380-7.420) Arterial Blood Partial 60 mmHg (38-42) Pressure CO2 Arterial Blood Partial 46 mmHg Pressure O2 (61-120) Arterial Blood Oxygen Content 7.9 Vol % (12.0-20.0) Blood Gas Hemoglobin 10.0 G/DL (12.0-16.0) Hospital Course Patient was in refractory shock upon consultation for admission to ICU. Patient 's brother had indicated that patient was DNR. There was some consideration of comfort measures by brother, however resuscitation was continued in hopes for organ donation if possible. However, patient remained in refractory shock 60/40 despite extremely high doses of 4 vasopressors. He ultimately had no Bp per cuff. Unable to place art line. Carotid pulse by doppler only, not palpable. Ultimately he lost dopplerable carotid pulse and went into asystole. He and was pronounced at 05:42. Hollie Morton MD Feb 01, 2017 08:06
--- NOTE | 2017-02-01 10:06 | EKG ---
Date Performed: 01/31/2017 Time Performed: 21:40:48 PTAGE: 56 years EKG: SINUS TACHYCARDIA POSSIBLE LEFT ATRIAL ENLARGEMENT MARKED RIGHT AXIS DEVIATION RIGHT BUNDLE BRANCH BLOCK ST DEPRESSION, CONSIDER SUBENDOCARDIAL INJURY ABNORMAL ECG NO PREVIOUS TRACING DOCTOR: Chava Rubalcava Interpretating Date/Time 02/01/2017 10:04:43
== END 2017-02-01 07:52 | disposition expired ==
LOC: NEPE 21:29 → NEDA 02-01 01:19 → N03B 02-01 03:11
PROVIDERS: ADMIT Emergency Medicine; ATTEND Emergency Medicine
PROC: 0BH17EZ Insertion of Endotracheal Airway into Trachea, Via Natural or Artificial Opening (ICD-10-PCS; principal; 2017-01-31)
PROC: 5A12012 Performance of Cardiac Output, Single, Manual (ICD-10-PCS; 2017-01-31)
PROC: 0T9B70Z Drainage of Bladder with Drainage Device, Via Natural or Artificial Opening (ICD-10-PCS; 2017-01-31)
PROC: 3E0F7GC Introduction of Other Therapeutic Substance into Respiratory Tract, Via Natural or Artificial Opening (ICD-10-PCS; 2017-01-31)
PROC: 5A2204Z Restoration of Cardiac Rhythm, Single (ICD-10-PCS; 2017-01-31)
DX: I46.9 Cardiac arrest, cause unspecified (principal); J96.00 Acute respiratory failure, unspecified whether with hypoxia or hypercapnia; I21.4 Non-ST elevation (NSTEMI) myocardial infarction; R57.0 Cardiogenic shock; J69.0 Pneumonitis due to inhalation of food and vomit; R34 Anuria and oliguria; G93.1 Anoxic brain damage, not elsewhere classified; N17.9 Acute kidney failure, unspecified; I95.9 Hypotension, unspecified; E87.2 Acidosis; N39.0 Urinary tract infection, site not specified; I50.9 Heart failure, unspecified; J44.9 Chronic obstructive pulmonary disease, unspecified; I10 Essential (primary) hypertension; F32.9 Major depressive disorder, single episode, unspecified; F41.9 Anxiety disorder, unspecified; Z66 Do not resuscitate; E78.00 Pure hypercholesterolemia, unspecified; K21.9 Gastro-esophageal reflux disease without esophagitis; N40.0 Benign prostatic hyperplasia without lower urinary tract symptoms; F20.9 Schizophrenia, unspecified; F17.210 Nicotine dependence, cigarettes, uncomplicated; E78.1 Pure hyperglyceridemia; Z87.440 Personal history of urinary (tract) infections; K75.9 Inflammatory liver disease, unspecified; D64.9 Anemia, unspecified; R73.9 Hyperglycemia, unspecified
CPT/HCPCS: 36556; 51702; 71010; 80053; 81001; 82550; 82552; 82805; 83605; 83690; 83735; 84100; 84484; 85007; 85027; 85610; 85730; 87040; 87086; 87185; 87205; 92950; 93005; 94002; 94003; 96365; 96367; 96375; J0171; J0282; J0692; J1720; J2270; J2370; J3370; J7030; J7040; J7060; J7070